=== PATIENT | female | born 1975 | race Caucasian/White ===

== ENCOUNTER 2017-07-14 10:53 | Emergency (ER) | payer MEDICAID ==
[2017-07-14] MEDS: ALBUTEROL 0.083% (NEB) 2.5 MG/3 ML AMP NEB (12:45)
[2017-07-14] MEDS: IPRATROPIUM (NEB) 0.5 MG/2.5 ML AMP NEB (12:45)
[2017-07-14] MEDS: DEXAMETHASONE 10 MG/ML 1 ML INJ IM (13:28)
== END 2017-07-14 13:53 | disposition home or self-care (01) ==
LOC: FTE 10:53
DX: J06.9 Acute upper respiratory infection, unspecified (principal)
CPT/HCPCS: 71045; 94664; 96372; 99284-25